=== PATIENT | female | born 1935 ===

== ENCOUNTER 2018-10-03 22:43 | Emergency (ER) | payer OTHER ==
[~2018-10-03] VITALS: Ht 149.9 cm; Wt 60.8 kg
[2018-10-03] MEDS ORDERED: METFORMIN HCL750 MG (23:17)
[2018-10-03] MEDS ORDERED: COZAAR50 MG (23:18)
[2018-10-04] MEDS ORDERED: PEPCID AC20 MG PO (05:05)
[2018-10-04] MEDS ORDERED: ONDANSETRON ODT4 MG SL (05:05)
== END 2018-10-04 05:22 | disposition home or self-care (01) ==
LOC: ER 22:43
DX: K52.89 Other specified noninfective gastroenteritis and colitis (principal); E86.0 Dehydration